=== PATIENT | male | born 1960 | race Caucasian/White ===

== ENCOUNTER 2017-07-14 14:42 | Emergency (ER) | payer BC ==
--- NOTE | 2017-07-14 15:05 | Emergency Department Record ---
History of Present Illness - General Chief Complaint: Dizziness Stated Complaint: diaphoretic/flushed/recent stent placement Time Seen by Provider: 07/14/17 14:54 Source: Patient Mode of Arrival: Wheelchair Limitations: No limitations - History of Present Illness Initial Comments: The patient is here due to an episode of dizziness and lightheadedness which occurred in the waiting area at [facility] area when he was trying to cancel an appointment with his Urologist. The patient denied any CP, SOB, DAYDAY, but was slightly sweaty during the episode. 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 He states he was discharged 9 days ago on multiple medicines. Since he has been doing well with no problems. The patient also denies any black or bloody stools, AP, CARLSON, or visual changes. MD Complaint: Dizziness, Lightheadedness Onset/Timin -: Minutes(s) Timing: Sudden onset Description: Other History of Same: No History of Trauma: No Severity: Mild Improves With: Nothing Worsens With: Nothing Associated Symptoms: Diaphoresis, Other - Related Data Home Medications Medication Instructions Recorded Confirmed Last Taken Alprazolam [Alprazolam] 0.25 mg PO QHS 07/14/17 07/14/17 Unknown Aspirin [Aspirin EC] 81 mg PO DAILY 07/14/17 07/14/17 Unknown Atorvastatin Calcium [Atorvastatin 80 mg PO QHS 07/14/17 07/14/17 Unknown Calcium] Glipizide [Glipizide ER] 2.5 mg PO DAILY 07/14/17 07/14/17 Unknown Isosorbide Mononitrate [Imdur] 30 mg PO DAILY 07/14/17 07/14/17 Unknown Lisinopril [Lisinopril] 2.5 mg PO DAILY 07/14/17 07/14/17 Unknown Metoprolol Tartrate [Metoprolol 25 mcg PO BID 07/14/17 07/14/17 Unknown Tartrate] Nitroglycerin [Nitroglycerin] 0.3 mg PO ASDIR PRN 07/14/17 07/14/17 Unknown Pantoprazole Sodium [Protonix] 40 mg PO DAILY 07/14/17 07/14/17 Unknown Prasugrel HCl [Effient] 10 mg PO DAILY 07/14/17 07/14/17 Unknown Allergies Allergy/AdvReac Type Severity Reaction Status Date / Time No Known Drug Allergies Allergy Verified 07/14/17 17:27 Travel Screening - Travel/Exposure Within Last 30 Days Have you traveled within the last 30 days?: No Review of Systems Constitutional: Denies: Chills, Fever Eyes: Denies: Eye discharge ENT: Denies: Congestion Respiratory: Denies: Cough, Dyspnea Past Medical History - SOCIAL HISTORY Smoking Status: Never smoker Alcohol Use: None Drug Use: None - RESPIRATORY Hx Respiratory Disorders: No - CARDIOVASCULAR Hx Cardio Disorders: Yes Hx Abnormal EKG: Yes Hx Cardiac Cath: Yes Hx Heart Attack: Yes Hx Hypertension: Yes - NEURO Hx Neuro Disorders: No - GI Hx GI Disorders: No - Hx Genitourinary Disorders: No - ENDOCRINE Hx Endocrine Disorders: Yes Hx Diabetes: Yes (type2) - MUSCULOSKELETAL Hx Musculoskeletal Disorders: Yes - PSYCH Hx Psych Problems: Yes Hx Anxiety: Yes - HEMATOLOGY/ONCOLOGY Hx Hematology/Oncology Disorders: No Family Medical History Any Significant Family History?: No Physical Exam - General General Appearance: Alert, Oriented x3, Cooperative, No acute distress - Head Head exam: Atraumatic, Normocephalic, Normal inspection - Eye Eye exam: Normal appearance, PERRL, EOMI - ENT ENT exam: Normal exam, Mucous membranes moist, Normal external ear exam, Normal orophraynx Throat exam: Normal inspection. negative: Tonsillar erythema, Tonsillar exudate - Neck Neck exam: Normal inspection, Full ROM. negative: Tenderness - Respiratory Respiratory exam: Normal lung sounds bilaterally. negative: Respiratory distress - Cardiovascular Cardiovascular Exam: Regular rate, Normal rhythm, Normal heart sounds - GI/Abdominal GI/Abdominal exam: Soft, Normal bowel sounds. negative: Tenderness - Extremities Extremities exam: Normal inspection, Full ROM, Normal capillary refill. negative: Tenderness - Neurological Neurological exam: Alert. negative: Motor sensory deficit Course Vital Signs 07/14/17 14:44 Temperature 97.4 F L Pulse Rate 63 Respiratory 18 Rate Blood Pressure 154/97 Pulse Ox 97 - Reevaluation(s) Reevaluation #1: The patient is doing well. He denies any CP, SOB, dizziness or sweating. I also did discuss the recent issues with him and told him that I am not sure why he became weak and lightheaded earlier today. I did repeat his EKG and it does appear the same as the first one: NSR at 60, flipped T waves III, and AVF consistent with an IL 12 days ago. I did discuss the issues at length with the patient and did recommend hospital admission. The patient is very reluctant to be admitted and would like to go home. I explained to him the risks of leaving are that he could go home and have an IL, stroke, become disabled and even . The patient understands and accepts the risks of leaving. He presently has proper decision making capacity and was told to see his entry level paralegal LEEANNA for recheck. 07/14/17 16:21 Reevaluation #2: The patient is doing well. His repeat tests were clearly now worsening. I again did discuss with him the need for admission but he again is refusing. He is to see his [employer] Apprentice later this week and return to the ER for any problems. He does understand he will be leaving AMA. 07/14/17 17:15 07/14/17 17:15 Medical Decision Making - Data Complexity MDM Data: Labs Ordered and/or Reviewed, EKG Ordered and/or Reviewed - Lab Data Result diagrams: 07/14/17 14:45 07/14/17 14:45 - EKG Data -: EKG Interpreted by Me (NSR, Flipped T waves III, and AVF. No acute ischemic changes. ) EKG: Abnormal EKG (EKG consistent with recent Inferior wall IL.) Disposition Disposition: Discharge Clinical Impression: Weakness Disposition: Against Medical Advice Condition: (1) Good Instructions: Dizziness (ED) Additional Instructions: Please continue your regular medicines. Please see your Heart doctor later this week. Return to the ER for any increased symptoms of any lightheadedness, or any pain, trouble breathing or sweating. Forms: Patient Portal Access Time of Disposition: 17:18 Quality - Quality Measures Quality Measures: N/A - Blood Pressure Screening View Details: Yes Does Patient Have Any of the Following: No Blood Pressure Classification: Hypertensive Reading Systolic Measurement: 154 Diastolic Measurement: 97 Screening for High Blood Pressure: < Pre-Hypertensive BP, F/U Documented > [ [id number]] Pre-Hypertensive Follow-up Interventions: Referral to alternative/primary care provider.
[2017-07-14 15:07] LABS: BASO % 0.3 % (0-6); EOS % 2.5 % (0-6); GRAN % 56.8 % (47-80); HEMATOCRIT 42.9 % (42.0-52.0); HEMOGLOBIN 14.3 gm/dl (14.0-18.0); LYMPH % 31.8 % (16-45); MEAN CORPUSCULAR HEMOGLOBIN 26.7 pg (27-33); MEAN CORPUSCULAR HGB CONC 33.3 g/dl (32-36); MEAN PLATELET VOLUME 9.4 fl (7.4-10.4); MONO % 8.6 % (0-9); PLATELET COUNT 344 K/uL (130-400); RED BLOOD COUNT 5.36 M/uL (4.40-5.70); RED CELL DISTRIBUTION WIDTH 13.6 % (11.5-14.5); WHITE BLOOD COUNT W/O DIFF 7.1 K/uL (4.2-12.2)
[2017-07-14 15:21] LABS: INR 0.93; PARTIAL THROMBOPLASTIN TIME 26.8 SECONDS (24.5-39.1)
[2017-07-14 15:31] LABS: ALB/GLOB RATIO 1.3 (1.1-1.8); ALBUMIN 4.4 g/dL (4.0-5.0); ALKALINE PHOSPHATASE 98 U/L (40-129); ALT/SGPT 28 U/L (<41); AST/SGOT 17 U/L (10.0-50.0); BLOOD UREA NITROGEN 15 mg/dL (6-20); CKMB 1.6 ng/mL (<6.73); CREATINE PHOSPHOKINASE 67 U/L (39-308); CREATININE 0.9 mg/dL (0.7-1.2); EST GLOMERULAR FILTRATION RATE > 60 mL/min; GLUCOSE,RANDOM 193 mg/dL (74-109); TOTAL PROTEIN 7.9 g/dL (6.6-8.7)
[2017-07-14 16:52] LABS: CKMB 1.4 ng/mL (<6.73)
[2017-07-14] MEDS ORDERED: ALPRAZOLAM 0.25 MG TABLET PO ONE (17:18)
== END 2017-07-14 17:29 | disposition left against medical advice (07) ==
LOC: ER 14:42
DX: R53.1 Weakness (principal); R61 Generalized hyperhidrosis; R42 Dizziness and giddiness; I10 Essential (primary) hypertension; I25.2 Old myocardial infarction; Z95.5 Presence of coronary angioplasty implant and graft
CPT/HCPCS: 80053; 82550; 82553; 84484; 85025; 85610; 85730; 93005; 93010; 99284